=== PATIENT | female | born 1985 | race Caucasian/White ===

== ENCOUNTER 2022-03-29 16:27 | Emergency (ER) | payer MEDICAID ==
[~2022-03-29] VITALS: Ht 170.2 cm; Wt 83.2 kg
[2022-03-29 16:49] VITALS: BP 108/61
[2022-03-29] MEDS ORDERED: cloNIDine 0.1 MG/24 HOUR patch (7 day patch) TD SCH (19:20)
[2022-03-29] MEDS ORDERED: magnesium oxide 400mg tablet PO ONE (19:20)
[2022-03-29] MEDS ORDERED: naproxen 500mg tablet PO ONE (20:00)
--- NOTE | 2022-03-29 20:05 | NUR ---
po med given
[2022-03-29] MEDS ORDERED: NAPR-56 PO (20:16)
== END 2022-03-29 20:27 | disposition home or self-care (01) ==
LOC: ER 16:28
DX: S70.02XA Contusion of left hip, initial encounter (principal); F12.90 Cannabis use, unspecified, uncomplicated; Z88.1 Allergy status to other antibiotic agents; Z79.899 Other long term (current) drug therapy; Z98.890 Other specified postprocedural states; W18.39XA Other fall on same level, initial encounter; Y93.89 Activity, other specified; Y92.89 Other specified places as the place of occurrence of the external cause; Y99.8 Other external cause status
CPT/HCPCS: 73502; 99283

== ENCOUNTER 2022-09-08 15:37 | Emergency (ER) | payer MEDICAID ==
[~2022-09-08] VITALS: Ht 167.6 cm; Wt 83.6 kg
[2022-09-08 16:19] VITALS: BP 111/73
== END 2022-09-08 22:45 | disposition left against medical advice (07) ==
LOC: ER 15:37
DX: Z00.8 Encounter for other general examination (principal); Z53.21 Procedure and treatment not carried out due to patient leaving prior to being seen by health care provider